=== PATIENT | male | born 1965 | race Caucasian/White ===

== ENCOUNTER 2018-12-08 05:51 | Observation (INO) ==
--- NOTE | 2018-12-05 08:50 | History and Physical Report ---
DATE OF ADMISSION: 12/08/2018 CHIEF COMPLAINT: Neck pain, arm pain and associated weakness, progressive neurological deficit at 52 years of age, 2-level spine disease at C5-C7. PAST MEDICAL HISTORY: Heart disease, diabetes, hypertension, high cholesterol. PAST SURGICAL HISTORY: Bypass surgery. ALLERGIES: Negative. FAMILY HISTORY: Heart disease. SOCIAL HISTORY: . Minimal alcohol. Moderate tobacco. Active lifestyle. REVIEW OF SYSTEMS: Negative for fevers, sweats, chills. Ear, nose and throat negative. Cardiovascular negative. No chest pain, shortness of breath. No nausea, vomiting. He has numbness, tingling, weakness and musculoskeletal stiffness. MEDICATIONS: Metoprolol, Lipitor, isosorbide, Humalog, Lantus. OBJECTIVE: GENERAL: He is 5 feet 9 inches, he is 205. He is in no terrible distress. VITAL SIGNS: Blood pressure 130/80, pulse 80, respirations 16. HEENT: Examination is essentially normal. CARDIAC: Normal S1, S2, no S3. LUNGS: Clear to auscultation. ABDOMEN: Soft, nontender. SKIN/INTEGUMENTARY: Normal. VASCULARITY: Normal. 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 He has worsening of his neurological status. He has a Spurling maneuver. He has a Lhermitte sign. IMAGES: Demonstrate a 2-level cervical spine disease and a large herniation at C5-C6 and cord compression at C6-C7. IMPRESSION: Two-level cervical spine disease. PLAN: We were approved by insurance to do 1-level of the cervical spine. We will try to do the worst level. If I have any ambiguity, we will hopefully go on and do both levels, so actually our goal and plan is a 2-level ACDF of the cervical spine C5-C7 with potential iliac crest bone graft. MTDD
--- NOTE | 2018-12-05 12:59 | Anesthesiology Consultation ---
Date of Service December 05, 2018 Assessment & Plan (1) Encounter for pre-operative examination: Chart Review Chart Review: Acceptable Risk for Surgery and Patient NOT seen in Pre Admission Testing Cardiology eval by Dr. Bolden on 09/30/2018: No absolute contraindications to surgery. Noted some surgical risks are moderated elevated due to underlying history of ischemia heart disease and need for withholding anti-platelet therapy. Consults Requested none History Surgery Operation Date: 12/08/18 07:30 Proposed Procedures p C5-C6, C6-C7 Anterior Cervical Discectomy and Fusion, With Iliac Crest Bone Graft - Lauro Lange DO Height/Weight Height: 5 ft 10 in Weight: 90.718 kg Allergies Allergy/AdvReac Type Severity Reaction Status Date / Time No Known Drug Allergies Allergy Verified 11/10/18 11:10 Medications Home Medications Medication Instructions Recorded Confirmed Last Taken gemfibrozil 600 mg tablet 600 mg PO BID #60 tab 07/22/18 11/10/18 10/03/18 07:00 glucagon (human recombinant) 1 mg 1 mg SQ Q20M PRN #1 ea 07/22/18 11/10/18 Unknown solution for injection insulin glargine (U-100) 100 24 units SQ HS #3 ml 07/22/18 11/10/18 10/02/18 22:00 unit/mL (3 mL) subcutaneous pen mecobalamin (vitamin B12) 1,000 1,000 mcg SL QAM 07/22/18 11/10/18 09/29/18 mcg disintegrating tablet,sublingual metoprolol tartrate 50 mg tablet 50 mg PO BID #30 tab 07/22/18 11/10/18 10/03/18 07:00 nitroglycerin 0.4 mg sublingual 0.4 mg SL Q5M PRN #30 tab 07/22/18 11/10/18 Unknown tablet rosuvastatin 40 mg tablet 40 mg PO QAM 07/22/18 11/10/18 10/02/18 20:00 cyclobenzaprine 10 mg tablet 10 mg PO HS #30 tab 07/24/18 11/10/18 Unknown aspirin 81 mg PO QAM 09/15/18 11/10/18 09/26/18 clopidogrel 75 mg PO QAM 09/15/18 11/10/18 10/01/18 insulin lispro [Humalog KwikPen 6 - 8 units SQ BID PRN 09/15/18 11/10/18 10/03/18 07:00 Insulin] 6 units isosorbide mononitrate 30 mg PO QAM 09/15/18 11/10/18 10/03/18 07:00 omega 3-qmv-uhr-fish oil [Fish Oil] 1 cap PO QAM 09/15/18 11/10/18 09/29/18 gabapentin 300 mg capsule See Rx Instructions .ROUTE 10/27/18 11/10/18 Unknown .COMPLEX #30 capsule Past Medical History Medical History Diabetes mellitus, type 2 IDDM Herniated cervical disc C5-C8 History of neck pain radiates down Right arm/hand Hx of myocardial infarction 10 YR AGO Hyperlipidemia Hypertension Numbness and tingling RIGHT - WEAKNESS AND NERVE PAIN Past Family History Family History Father Dementia Bladder cancer Myocardial infarction Heart disease Hypertension Mother Diabetes Heart disease Hypertension Brother Diabetes Heart disease Hypertension Grandmother (Maternal) Heart disease Hypertension Grandfather (Maternal) Heart disease Hypertension Past Surgical History Surgical History History of cardiac cath 8 YR AGO [facility] History of colonoscopy 1 year ago [facility] History of nasal septoplasty endoscopic sinus surgery. 10/03/2018. GETA. MAC 3, grade 2 view. 7.5 ETT. Intraop records noted swelling under right eye. Hx of Achilles tendon repair RIGHT Hx of heart bypass surgery 10 YR AGO 4 [facility] AT [facility] Hx of vasectomy Social History Smoking Status: Former smoker tobacco type: cigarettes Do You Dip or Chew Tobacco: Yes Smoking End Date: 02/19/2008 Hx Alcohol Use: Yes Alcohol type: beer alcohol intake frequency: a few times a week Hx Substance Use: No Testing Laboratory Results Laboratory Tests 09/18/18 09/18/18 09/18/18 11:24 11:24 11:24 WBC 5.35 Hgb 15.7 Hct 45.5 Plt Count 199 PT 10.1 INR 1.0 APTT 25.6 Sodium 139 Potassium 4.6 Chloride 108 H Carbon Dioxide 27 BUN 15 Creatinine 0.95 Glucose 121 H Electrocardiogram Date: 09/30/18 Findings: + NSR @ (70) NSR. Possible LAE. RSR or QR pattern in V1 suggests RV conduction delay. Anterior infarct. Electrocardiogram Date: 01/20/18 Findings: + NSR @ (62) RSR' or QR pattern in V1 suggests right ventricular conduction delay ST & T wave abnormality, consider anterior ischemia When compared with ECG of 12/13/16, Questionable change in QRS duration Minimal criteria for anterior infarct are no longer present Criteria for inferior infarct are no longer present Chest X-Ray Date: 11/18/18 XR chest Pre-admission PA/Lat HISTORY: Preop. COMPARISON: Chest 01/09/2012. FINDINGS: There are poststernotomy changes. The heart is normal in size. Low lung volumes. Calcified granuloma the right lung base, unchanged. Otherwise, the lungs are clear. No pleural effusions. No pneumothorax. IMPRESSION: No acute process Other Testing 07/23/18: C spine xrays CERVICAL SPINE 4 VIEWS HISTORY: Neck pain. Right-sided finger numbness. COMPARISON: None. FINDINGS: The cervical spine is visualized from C1 through the superior endplate of T1. There is no fracture. No subluxation. Straightening of the cervical spine. Mild facet degenerative changes throughout the cervical spine. Prevertebral soft tissues and the atlantodens interval are intact. Mild disc space narrowing at C6-C7. IMPRESSION: No fracture or subluxation within the cervical spine. Mild degenerative disc disease at C6-C7.
[2018-12-08] MEDS ORDERED: SODIUM CHLORIDE 0.9% 1,000 ML IV SCH (06:00)
[2018-12-08] MEDS ORDERED: CEFAZOLIN 2000MG 2,000 MG/15 ML SYR IV SCH (06:00)
[2018-12-08] MEDS ORDERED: LR 15ML/HR IV SCH (06:00)
[2018-12-08] MEDS ORDERED: MIDAZOLAM HCL 1 MG/ML 2ML VIAL ONE (06:51)
[2018-12-08] MEDS ORDERED: PROPOFOL IV EMULSION 10 MG/ML 20 ML VIAL IV ONE (06:51)
[2018-12-08] MEDS ORDERED: ONDANSETRON INJ 2 MG/ML 2 ML VIAL ONE (06:51)
[2018-12-08] MEDS ORDERED: LIDOCAINE HCL 2% 2 ML VIAL/AMP(20MG/ML) INFIL ONE (06:51)
[2018-12-08] MEDS ORDERED: ROCURONIUM BROMIDE 10 MG/ML 5 ML VIAL ONE ×2 (06:51→08:51)
[2018-12-08] MEDS ORDERED: NEOSTIGMINE METHYLSULFATE 5 MG/5 ML SYR ONE (06:51)
[2018-12-08] MEDS ORDERED: fentaNYL citrate 100 MCG/2 ML VIAL ONE ×2 (06:51→08:12)
[2018-12-08] MEDS ORDERED: GELATIN SPONGE SZ 100 ONE (06:56)
[2018-12-08] MEDS ORDERED: BACITRACIN INJ 50,000 UNIT VIAL ONE (06:56)
[2018-12-08] MEDS ORDERED: BUPIVACAINE/EPINEPHRINE 0.5% MPF 1:200,000 30 ML VIAL ONE ×2 (06:56→09:37)
[2018-12-08] MEDS ORDERED: THROMBIN FOR SOLN 20000 UNIT KIT ONE (06:56)
[2018-12-08 06:57] LABS: Basophils # (auto) 0.01 K/uL (0-0.2); Basophils % (auto) 0.2 %; Eosinophils # (auto) 0.04 K/uL (0-0.5); Eosinophils % (auto) 0.7 %; Hematocrit (blood only) 41.5 % (42-52); Hemoglobin 13.7 g/dL (14.0-18.0); Immature Granulocytes # (auto) 0.01 K/uL (0.00-0.02); Immature Granulocytes % (auto) 0.2 %; Lymphocytes # (auto) 1.82 K/uL (1.2-3.4); Mean Corpuscular Hemoglobin 31.2 pg (25-34); Mean Corpuscular Volume 94.5 fL (80-100); Mean Platelet Volume 11.2 fL (7.4-10.4); Monocytes # (auto) 0.54 K/uL (0.11-0.59); Monocytes % (auto) 9.8 %; Neutrophils % (auto) 56.1 %; Platelet Count 181 K/uL (130-400); RDW Coefficient of Variation 13.4 % (11.5-14.5); RDW Standard Deviation 46.5 fL (36.4-46.3); Red Blood Count 4.39 M/uL (4.7-6.1); White Blood Count 5.52 K/uL (4.8-10.8)
[2018-12-08 07:14] LABS: BUN Creatinine Ratio 13.8 (10-20); Calcium 8.7 mg/dl (8.5-10.1); Creatinine Clr Calc Pharmacy 107.1 ml/min; Est GFR (African American) 110.4; Est GFR (Non-African American) 95.3
[2018-12-08 07:17] LABS: Prothrombin Time 10.5 Seconds (9.0-12.0)
[2018-12-08] MEDS ORDERED: ePHEDrine sulfate 50 MG/ML AMP IV PRN (07:18)
[2018-12-08] MEDS ORDERED: PROMETHAZINE HCL 12.5 MG in SODIUM CHLORIDE 0.9% 50 ML IV PRN ×2 (07:18→11:29)
[2018-12-08] MEDS ORDERED: ONDANSETRON INJ 2 MG/ML 2 ML VIAL IV PRN ×2 (07:18→11:29)
[2018-12-08] MEDS ORDERED: fentaNYL citrate 100 MCG/2 ML VIAL IV PRN (07:18)
[2018-12-08] MEDS ORDERED: HYDROmorphone INJ 2 MG/ML SYR/VIAL IV PRN (07:18)
[2018-12-08] MEDS ORDERED: ATROPINE SULFATE 0.1 MG/ML 10ML SYR IV PRN (07:18)
--- NOTE | 2018-12-08 07:20 | History & Physical Bridge Note ---
Date of Service December 08, 2018 History & Physical Bridge Note I have examined the patient, reviewed the History & Physical and in the interval since the performance of the History & Physical I have noted the following changes of clinical significance: no changes noted
[2018-12-08] MEDS ORDERED: HYDROmorphone INJ 2 MG/ML SYR/VIAL ONE (08:05)
[2018-12-08] MEDS ORDERED: DEXAMETHASONE SOD INJ 4 MG/ML VIAL ONE (08:45)
[2018-12-08] MEDS ORDERED: ePHEDrine sulfate 50 MG/ML SYR ONE (09:01)
--- NOTE | 2018-12-08 10:02 | Post Operative Brief Note ---
PG Immediate Post Op with CF Date of Surgery December 08, 2018 Pre & Post Diagnosis Operation Date: 12/08/18 07:30 Pre-Op Diagnosis: Cervical Stenosis, Disc Herniation Post-Op Diagnosis: Cervical Stenosis, Disc Herniation I identified the patient and participated in the time-out.: Yes Procedure Operation Date: 12/08/18 07:30 Actual Procedures p C5-C6, C6-C7 Anterior Cervical Discectomy and Fusion, With Iliac Crest Bone Graft(Not Applicable) - Lauro Lange DO Surgeon Lauro Lange DO [employer]el[employer] frederick Estimated Blood Loss 10 Findings Consistent with Post-Op Diagnosis Specimens Specimen Description: None per surgeon Drains Missy Drain Complications none Overlapping Procedure I was immediately available: during the entire case.
--- NOTE | 2018-12-08 10:03 | Fluoroscopy Report ---
FL spine 1V any level CLINICAL HISTORY: ACDF C5-7 COMPARISON STUDY: Cervical spine radiographs July 23, 2018. FLUOROSCOPY TIME: 9 seconds. FLUOROSCOPIC IMAGES: 2. FINDINGS: These images demonstrate a C5-C7 anterior discectomy and fusion. Inferior aspect of the fus ion is partially obscured on this exam. A surgical drain is likely in place, partially imaged. Endotr acheal tube is noted. IMPRESSION: Postoperative findings demonstrating a C5-C7 anterior discectomy and fusion. Electronically signed by: Bernardo Moody M.D. 12/08/2018 10:02 AM
--- NOTE | 2018-12-08 10:09 | Operative Report ---
Post Operative Report Pre & Post Diagnosis Operation Date: 12/08/18 07:30 Pre-Op Diagnosis: Cervical Stenosis, Disc Herniation Post-Op Diagnosis: Cervical Stenosis, Disc Herniation I identified the patient and participated in the time-out.: Yes Procedure Operation Date: 12/08/18 07:30 Actual Procedures p C5-C6, C6-C7 Anterior Cervical Discectomy and Fusion, With Iliac Crest Bone Graft(Not Applicable) - Lauro Lange DO Structural iliac crest bone graft Anterior plating C5-C7. Surgeon Lauro Lange, Group Director Experience frederick Estimated Blood Loss 10 Findings Consistent with Post-Op Diagnosis Specimens No specimens Description of Procedure This patient was safely brought to the hospital and operating room. A general intubated anesthetic provided the patient. Antibiotics delivered formal timeout provided. He was scrubbed prepped draped sterile. First made a skin incision fascial incision used a classic Stone-Ferrer approach came down on the C5-6 and C6-7 intervals of the cervical spine we used a image intensifier to evaluate and prove the level of the procedure. We did a formal discectomy at C5-6 of the cervical spine. Is pleased with the decompression we got back and through the posterior longitudinal ligament we completed foraminotomies all the disc material was retrieved removed at C5-6 of the cervical spine. We then went to the C6-7 interval did a formal discectomy as well enemies partial facetectomies we are back and through the posterior longitudinal ligament no residual disc material. I then went to the left iliac crest harvested autograft from the left iliac crest him structural autograft the discectomy sites at C5-6 and 6 7. The autograft were approximately 8 mm in height taper to 7 possibly 16 mm in length. The structural autograft were then placed into the discectomy sites and anterior plate placed as well we kept him in lordosis the fit was excellent we used 6 cortical screws fast and the plate and locked as well We then irrigated thoroughly cervical spine left iliac crest. Drain was placed in cervical spine region closed in layer fashion both areas sterile dressings a pplied collar applied the patient return to recovery room improved stable condition no apparent complications sponge and needle count correct at the close of procedure Bone graft used with structural autograft Implants used by the [employer] website I attest to the content of the Intraoperative Record and any orders documented therein. Any exceptions are noted below.
[2018-12-08] MEDS ORDERED: LABETALOL HCL IV 5 MG/ML 20ML IV PRN (10:15)
[2018-12-08] MEDS ORDERED: LABETALOL HCL IV 5 MG/ML 20ML IV ONE (10:18)
[2018-12-08] MEDS ORDERED: DO NOT ADMINISTER FLU VACCINE PRN (11:29)
[2018-12-08] MEDS ORDERED: NALOXONE HCL 0.4 MG/1 ML VIAL/CARP IV PRN (11:29)
[2018-12-08] MEDS ORDERED: ACETAMINOPHEN 1,000 MG/100 ML VIAL IV PRN (11:29)
[2018-12-08] MEDS ORDERED: ONDANSETRON 4 MG TAB PO PRN (11:29)
[2018-12-08] MEDS ORDERED: DO NOT ADMINISTER PNEUMOCOCCAL VACCINE PRN (11:29)
[2018-12-08] MEDS ORDERED: MAGNESIUM HYDROXIDE SUSP 30 ML UDC PO PRN (11:29)
[2018-12-08] MEDS ORDERED: LORazepam 0.5 MG/1 ML VIAL IV PRN (11:29)
[2018-12-08] MEDS ORDERED: SOD PHOSPHATE/SOD BIPHOSPHATE ENEMA 132 ML BTL PR PRN (11:29)
[2018-12-08] MEDS ORDERED: ALUMINUM/MAGNESIUM SUSP 30 ML UDC PO PRN (11:29)
[2018-12-08] MEDS ORDERED: RACEPINEPHRINE 2.25% NEBU SOLN 0.5 ML VIAL INH PRN (11:29)
[2018-12-08] MEDS ORDERED: FAMOTIDINE 20 MG TAB PO PRN (11:29)
[2018-12-08] MEDS ORDERED: HYDROmorphone INJ 0.5 MG/0.5 ML SYR IV PRN (11:29)
[2018-12-08] MEDS ORDERED: NITROGLYCERIN SL 0.4 MG/TAB TAB SL PRN (11:29)
--- NOTE | 2018-12-08 11:38 | Anesthesiology Progress Note ---
Date of Service December 08, 2018 Anesthesia Post Procedure Vital Signs Vital Signs: Temp Pulse Pulse Resp BP Pulse Ox 12/08/18 11:15 80 26 H 149/98 H 96 12/08/18 11:05 36.4 C L 69 23 137/83 96 12/08/18 10:55 78 30 H 138/93 95 12/08/18 10:45 65 18 142/83 H 95 12/08/18 10:35 69 20 150/94 H 96 12/08/18 10:25 73 99 H 152/95 H 100 12/08/18 10:15 67 19 171/97 H 100 12/08/18 10:05 68 16 180/92 H 100 12/08/18 09:55 36.1 C L 74 21 175/91 H 95 12/08/18 06:19 36.6 C 68 20 144/88 H 97 Pain Intensity Right Arm: Pain Intensity: 4 Transfer of Care Handoff Completed per policy Notes Mental Status: alert / awake / arousable and participated in evaluation Patient Amnestic to Procedure: Yes Nausea / Vomiting: adequately controlled Pain: adequately controlled Airway Patency, RR, SpO2: stable & adequate BP & HR: stable & adequate Hydration State: stable & adequate Anesthetic Complications: no major complications apparent and Pt Satisfied with anesthetic care
[2018-12-08] MEDS: OXYCODONE HCL IR 5 MG TAB (IMMEDIATE RELEASE) PO PRN ×3 (12:09→23:17)
[2018-12-08] MEDS: SODIUM CHLORIDE 0.9% 1000ML 1,000 ML IV SCH (12:10)
[2018-12-08] MEDS ORDERED: PHARMACY GLYCEMIC MGMT CONSULT PRN (12:11)
[2018-12-08] MEDS: KETOROLAC 30 MG/ML VIAL IV SCH ×2 (12:25→18:19)
[2018-12-08] MEDS ORDERED: GLUCAGON FOR INJ 1 MG VIAL SQ PRN (12:30)
[2018-12-08] MEDS ORDERED: GLUCOSE 40% GEL 15 GM TUBE PO PRN (12:30)
[2018-12-08] MEDS ORDERED: GLUCOSE 10 TABS/TUBE PO PRN (12:30)
[2018-12-08] MEDS ORDERED: CARBOHYDRATES FOR HYPOGLYCEMIA PO PRN (12:30)
[2018-12-08] MEDS ORDERED: DEXTROSE 50% 50 ML SYRINGE IV PRN (12:30)
--- NOTE | 2018-12-08 12:41 | Pharmacy Report ---
Glycemic Control Consultation - Date of Service December 08, 2018 - Scope Scope: Glycemic Pharmacist consulted by KEE Pinto on 12/08 for glycemic control and to write orders per [facility] inpatient glycemic control protocol - Objective Weight: 92.079 kg Accuchecks BSG (last 24hrs): 12/08/18 12/08/18 12/08/18 06:08 06:37 07:53 Glucose 109 H POC Glucose 105 H 101 H 12/08/18 12/08/18 12/08/18 09:09 09:56 10:55 Glucose POC Glucose 103 H 97 133 H Laboratory Data (last 24hrs): 12/08/18 06:37 Potassium 4.0 Carbon Dioxide 25 Anion Gap 5.0 Creatinine 0.92 Est Cr Clr Drug Dosing 107.1 - Recent Pertinent Medications Outpatient Anti-diabetic Regimen: * Lantus 24 units qHS * Humalog 6-8 units BID per sliding scale * A1c = 6.9 % 08/05/18 Risk Factors for Insulin Resistance: * Steroids: Decadron 8 mg IV given intraop * Recent Surgery: POD 0 s/p spinal surgery * Diet: NPO - Assessment & Plan Assessment & Plan: ASSESSMENT: * 52 y/o male admitted s/p spinal surgery. He has a history of T2DM, well controlled as per A1c. * Prior to surgery, it is documented that he took his full dose of Lantus last night and 6 units of Humalog this AM. * BSGs are currently well controlled but I anticipate an increase d/t intraop steroids * Will continue with basal + bolus insulin but stress doses to account for steroid use PLAN FOR INPATIENT GLYCEMIC CONTROL: * Basal insulin * Lantus qHS (starting today w/ dinner) per the following scale: * 24 units for BSG < 180 (total daily dose w/ stress factor of 2) * 32 units for BSG 180 mg/dL or above (weight w/ stress factor of 2) * Bolus insulin - using insulin calculator estimates w/ weight and stress factor of 3 * NovoLog per scale ACHS or Q6hrs while NPO * Goal Range: Low 110 mg/dL - High 140 mg/dL * Correction Factor: 15 mg/dL/unit * Nutritional / Prandial insulin per carb ratio of 1 unit per 6 grams CHO consumed * Updated A1c ordered w/ AM labs since last was > 90 days * Please note that the plan above was derived based on current level of insulin resistance and hospital stress. These recommendations are appropriate for inpatient admission only. Plan of care upon discharge will need to be reassessed to avoid potential outpatient hypo/hyperglycemia. Thank you.
[2018-12-08] MEDS ORDERED: INSULIN ASPART 100 UNITS/ML 3 ML PEN SC SCH (13:00)
[2018-12-08] MEDS: CEFAZOLIN 2000MG 2,000 MG/15 ML SYR IV SCH ×2 (14:36→23:17)
[2018-12-08] MEDS ORDERED: INSULIN GLARGINE SOLOSTAR 100 UNITS/ML 3 ML PEN SC SCH (16:30)
[2018-12-08] MEDS: INSULIN ASPART 100 UNITS/ML 3 ML PEN SC SCH ×2 (18:16→21:21)
[2018-12-08] MEDS ORDERED: GABAPENTIN 300 MG CAP PO SCH (21:00)
[2018-12-08] MEDS ORDERED: DOCUSATE SODIUM/SENNA 50/8.6MG TAB PO SCH (21:00)
[2018-12-08] MEDS: METOPROLOL TARTRATE 50 MG TAB PO SCH (21:20)
[2018-12-08] MEDS: GEMFIBROZIL 600 MG TAB PO SCH (21:21)
[2018-12-09] MEDS ORDERED: COUGH DROP (SUGAR FREE) LOZ 24 LOZ/1 BOX BUCCAL ONE (00:38)
[2018-12-09] MEDS: SODIUM CHLORIDE 0.9% 1000ML 1,000 ML IV SCH (00:40)
[2018-12-09] MEDS: KETOROLAC 30 MG/ML VIAL IV SCH ×2 (00:40→06:28)
[2018-12-09 04:57] VITALS: O2SAT 93
[2018-12-09 04:59] LABS: Hematocrit (blood only) 39.3 % (42-52); Hemoglobin 12.6 g/dL (14.0-18.0); Immature Granulocytes # (auto) 0.03 K/uL (0.00-0.02); Immature Granulocytes % (auto) 0.3 %; Lymphocytes # (auto) 1.16 K/uL (1.2-3.4); Lymphocytes % (auto) 10.3 %; Mean Corpuscular Hemoglobin 30.7 pg (25-34); Mean Corpuscular Hgb Conc 32.1 g/dL (32-36); Mean Corpuscular Volume 95.6 fL (80-100); Mean Platelet Volume 11.9 fL (7.4-10.4); Monocytes # (auto) 1.06 K/uL (0.11-0.59); Monocytes % (auto) 9.4 %; Neutrophils # (auto) 9.06 K/uL (1.4-6.5); Platelet Count 203 K/uL (130-400); RDW Coefficient of Variation 13.6 % (11.5-14.5); RDW Standard Deviation 46.9 fL (36.4-46.3); Red Blood Count 4.11 M/uL (4.7-6.1); White Blood Count 11.31 K/uL (4.8-10.8)
[2018-12-09 05:33] LABS: BUN Creatinine Ratio 12.7 (10-20); Calcium 8.8 mg/dl (8.5-10.1); Est GFR (Non-African American) 94.1; Potassium 4.2 mmol/L (3.5-5.1)
[2018-12-09 06:43] VITALS: BP 142/92; TEMP 98.1
[2018-12-09 06:56] VITALS: PULSE 74
[2018-12-09 07:24] LABS: Estimated Average Glucose 171 mg/dl; Hemoglobin A1C 7.6 % (4.5-5.6)
--- NOTE | 2018-12-09 08:11 | Anesthesiology Progress Note ---
Date of Service December 09, 2018 Anesthesia Post Procedure Vital Signs Vital Signs: Temp Pulse Pulse Resp BP Pulse Ox 12/09/18 06:55 74 12 93 12/09/18 06:30 36.7 C 79 16 142/92 H 93 12/09/18 04:30 36.9 C 68 16 137/88 93 12/09/18 02:30 36.7 C 68 16 131/79 92 12/09/18 00:30 36.5 C 71 16 142/90 H 93 12/08/18 23:47 72 16 95 12/08/18 22:51 36.6 C 71 17 119/77 93 12/08/18 20:35 79 18 115/77 92 12/08/18 19:33 98 H 16 94 12/08/18 18:26 85 16 127/82 93 12/08/18 16:30 36.4 C L 79 16 117/74 94 12/08/18 15:22 94 H 16 96 12/08/18 14:32 90 16 132/82 93 12/08/18 13:27 36.5 C 83 15 118/74 94 12/08/18 12:30 36.5 C 83 15 130/76 94 12/08/18 12:01 36.5 C 78 18 128/80 92 12/08/18 11:45 84 18 94 12/08/18 11:35 36.5 C 74 20 130/82 92 12/08/18 11:15 80 26 H 149/98 H 96 12/08/18 11:05 36.4 C L 69 23 137/83 96 12/08/18 10:55 78 30 H 138/93 95 12/08/18 10:45 65 18 142/83 H 95 12/08/18 10:35 69 20 150/94 H 96 12/08/18 10:25 73 99 H 152/95 H 100 12/08/18 10:15 67 19 171/97 H 100 12/08/18 10:05 68 16 180/92 H 100 12/08/18 09:55 36.1 C L 74 21 175/91 H 95 Pain Intensity Right Arm: Pain Intensity: 4 Left Hip: Pain Intensity: 0 Neck: Pain Intensity: 0 Notes Mental Status: alert / awake / arousable and participated in evaluation Patient Amnestic to Procedure: Yes Nausea / Vomiting: adequately controlled Pain: adequately controlled Airway Patency, RR, SpO2: stable & adequate BP & HR: stable & adequate Hydration State: stable & adequate Anesthetic Complications: no major complications apparent and Pt Satisfied with anesthetic care
[2018-12-09] MEDS: GEMFIBROZIL 600 MG TAB PO SCH (08:15)
[2018-12-09] MEDS: METOPROLOL TARTRATE 50 MG TAB PO SCH (08:15)
[2018-12-09] MEDS: INSULIN ASPART 100 UNITS/ML 3 ML PEN SC SCH (08:20)
[2018-12-09] MEDS ORDERED: ROSUVASTATIN CALCIUM 20 MG TAB PO SCH (09:00)
[2018-12-09] MEDS ORDERED: CLOPIDOGREL BISULFATE 75 MG TAB PO SCH (09:00)
[2018-12-09] MEDS ORDERED: ASPIRIN 81 MG ECTAB PO SCH (09:00)
--- NOTE | 2018-12-09 09:24 | Discharge Summary ---
Date of Service December 09, 2018 Patient had an uneventful 2 level cervical spine fusion and decompression of the spinal cord He was improved stable at time of discharge no chest pain shortness of breath no confusion he was discharged home with instruction precautions provided prescription is at home he needs nothing new Orders were provided as to his dressings See him back in approximately 12 days at a prearranged appointment Principal Diagnosis Spinal cord compression Discharge Data Allergies Allergy/AdvReac Type Severity Reaction Status Date / Time No Known Drug Allergies Allergy Verified 12/08/18 06:14 Procedures Performed Operation Date: 12/08/18 07:30 Actual Procedures p C5-C6, C6-C7 Anterior Cervical Discectomy and Fusion, With Iliac Crest Bone Graft(Not Applicable) - Lauro Lange, Ordered Studies 12/08/18 07:30 FL fluoroscopy <1hr Routine FL spine 1V any level Routine Total Time Total Time Spent Total Time Spent (In Minutes): 30 Discharge Plan Discharge Items Patient Disposition: Home - Self-Care Reason For Visit: Cervical Stenosis, Disc Herniation Discharge Diagnosis: Cervical stenosis disc herniation Activity: As commented below Activity Comment: Home rest recover Non-emergency contact: Primary Care Provider Call non-emergency contact if: you have any medication questions Follow-up/Referrals: Emmanuel Sifuentes [Primary Care Provider] - Diet: Regular Addtl Attending Provider Instructions: Home rest recover light activity. Keep the wound clean dry. Collar should be worn when up and ambulatory and in a motor vehicle does not to be need to be worn when he sitting nor eating Pending Studies at Discharge: No Stand-Alone Forms: My [facility] [address] Medications and DC Order Prescriptions: Continued gemfibrozil 600 mg tablet 600 mg PO BID Qty: 60 RF: 0 metoprolol tartrate 50 mg tablet 50 mg PO BID Qty: 30 RF: 0 nitroglycerin 0.4 mg tablet, sublingual 0.4 mg SL Q5M PRN (Reason: chest pain) Qty: 30 RF: 0 glucagon (human recombinant) 1 mg recon soln 1 mg SQ Q20M PRN (Reason: hypoglycemia) Qty: 1 RF: 0 Lantus Solostar U-100 Insulin 100 unit/mL (3 mL) insulin pen 24 units SQ HS Qty: 3 RF: 2 mecobalamin (vitamin B12) 1,000 mcg tablet,disintegrating 1,000 mcg SL QAM RF: 0 rosuvastatin 40 mg tablet 40 mg PO QAM RF: 0 cyclobenzaprine 10 mg tablet 10 mg PO HS Qty: 30 RF: 3 isosorbide mononitrate 30 mg tablet extended release 24 hr 30 mg PO QAM RF: 0 clopidogrel 75 mg tablet 75 mg PO QAM RF: 0 aspirin 81 mg tablet,delayed release (DR/EC) 81 mg PO QAM RF: 0 insulin lispro [Humalog KwikPen Insulin] 100 unit/mL insulin pen 6 - 8 units SQ BID PRN (Reason: ELEVATED BLOOD SUGAR) RF: 0 omega 3-agl-myu-fish oil [Fish Oil] 1,000 mg (120 mg-180 mg) capsule 1 cap PO QAM RF: 0 gabapentin 300 mg Capsule 300 mg PO HS RF: 0 Discharge Orders: Discharge Order (Routine); Ordered 12/09/18 Ordered By: Lauro Quiñones/Other Patient Handouts: Diabetes Halfway Complications, Diabetes Resources, Diabetes Healthy Meals, Diabetes Carbs, Diabetes Exercise Benefits, Diabetes Manage A1C Test Admission Data Admit Date/Time: 12/08/18 10:04 Attending Provider: Lauro Lange Admit Provider: Lauro Lange Primary Care Provider: Emmanuel Sifuentes
--- NOTE | 2018-12-09 10:27 | Pharmacy Report ---
Pharmacy Glycemic Short Note 2 - Date of Service December 09, 2018 - Glycemic Short BSG Results (Last 24 hours): 12/08/18 12/08/18 12/08/18 10:55 17:05 20:51 Glucose POC Glucose 133 H 181 H 152 H 12/09/18 12/09/18 04:25 08:14 Glucose 140 H POC Glucose 137 H OUTPATIENT ANTIDIABETIC REGIMEN: * Lantus 24 units qHS * Humalog 6-8 units BID per sliding scale * A1c = 6.9 % 08/05/18 Risk Factors for Insulin Resistance: * Steroids: Decadron 8 mg IV given intraop * Recent Surgery: POD 1 s/p spinal surgery * Diet: T2DM - Assessment & Plan ASSESSMENT: 12/09 * Patient is POD 1 and will be discharged today * BSGs have ranged from 137-181 mg/dL, with a fasting BSG of 137 mg/dL * Anticipate Decadron to wear off ~lunch/dinner today so can resume usual dose of Lantus and loosen Novolog parameters 12/08 * 52 y/o male admitted s/p spinal surgery. He has a history of T2DM, well controlled as per A1c. * Prior to surgery, it is documented that he took his full dose of Lantus last night and 6 units of Humalog this AM. * BSGs are currently well controlled but I anticipate an increase d/t intraop steroids * Will continue with basal + bolus insulin but stress doses to account for steroid use PLAN FOR INPATIENT GLYCEMIC CONTROL: * Basal insulin * Lantus qHS per the following scale: * 20 units for BSG < 110 * 24 units for BSG 110 or above * Bolus insulin * NovoLog per scale ACHS or Q6hrs while NPO * Goal Range: Low 110 mg/dL - High 140 mg/dL * Correction Factor: 25 mg/dL/unit * Nutritional / Prandial insulin per carb ratio of 1 unit per 8 grams CHO consumed PLAN FOR DISCHARGE: * A1c = 7.6% on 12/09/18 * Goal A1c < 7% for age/comorbidities * Patient may need Humalog dosing added with lunch. Would recommend f/u with PCP as an outpatient.
[2018-12-09] MEDS ORDERED: POLYETHYLENE (MIRALAX) 17 GM PACK PO SCH (12:00)
[2018-12-10] MEDS ORDERED: bisacodyL 10 MG SUPP PR PRN (09:56)
== END 2018-12-09 12:05 | disposition home or self-care (01) ==
LOC: ASU 05:51 → 3E 05:51